=== PATIENT | female | born 1970 ===

== ENCOUNTER 2017-02-06 08:00 | Day surgery (SDC) | payer OTHER ==
[2017-02-06] MEDS ORDERED: Propofol 10 mg/ml Inj (20 ML) ONE (10:03)
--- NOTE | 2017-02-06 10:03 | CP.SDSHP ---
Same Day Surgery H & P - History Proposed Procedure: COLONSCOPY Pre-Op Diagnosis: SEE NOTES - Previous Medical/Surgical History Cardiac: Hypertension Pulmonary: Asthma Endocrine/Metabolic: Diabetes - Allergies Allergies: Allergies Penicillins Adverse Reaction (Verified 02/06/17 08:44) ANAPHYLAXIS - Physical Exam General Appearance: N Vital Signs: Vital Signs 02/06/17 08:55 Temperature 97 F L Pulse Rate 67 Respiratory 20 Rate Blood Pressure 120/68 O2 Sat by Pulse 97 Oximetry Mental Status: Alert & Oriented x3 Neuro: WNL Heart: Other Lungs: Other GI: WNL - {Optional Preform as Required} Breast: WNL Abdomen: Other Rectal: Other Integument: WNL : WNL Ortho: WNL ENT: WNL - Impression Pt. Evaluated Today:Candidate for Anesthesia & Procedure: Yes - Date & Time Time: 10:03 Short Stay Discharge - Short Stay Discharge Admitting Diagnosis/Reason for Visit: DIARRHEA, UNSPECIFIED Disposition: HOME/ ROUTINE
[2017-02-06 10:34] VITALS: TEMP 97.7
[2017-02-06] MEDS ORDERED: Belladonna-Phenobarbital PO ONE (10:40)
[2017-02-06 10:43] VITALS: O2SAT 100
[2017-02-06] MEDS ORDERED: (Novolin R) Insulin Human Regular 100 units/ml vial IV ONE (11:00)
[2017-02-06] MEDS ORDERED: (Novolin R) Insulin Human Regular 100 units/ml vial IV SCH (11:15)
[2017-02-06 12:10] VITALS: BP 104/62; PULSE 79; RESP 22
== END 2017-02-06 12:05 | disposition home or self-care (01) ==
LOC: C.ENDO 08:00
PROVIDERS: ATTEND Specialist
DX: R19.7 Diarrhea, unspecified (principal); D12.7 Benign neoplasm of rectosigmoid junction; K64.8 Other hemorrhoids; K58.9 Irritable bowel syndrome, unspecified
CPT/HCPCS: 45380; 82948; 88305; 88313; 88342; J2704

== ENCOUNTER 2017-02-08 08:32 | Day surgery (SDC) | payer OTHER ==
[2017-02-08 08:48] VITALS: BMI 31.9
[2017-02-08] MEDS ORDERED: Lactated Ringer's 1,000 ML IV ONE (09:50)
--- NOTE | 2017-02-08 09:52 | CP.SDSHP ---
Same Day Surgery H & P - History Proposed Procedure: EGD Pre-Op Diagnosis: SEE NOTES - Previous Medical/Surgical History Cardiac: Hypertension Pulmonary: Asthma Endocrine/Metabolic: Diabetes Misc: , Other Pain: 4.Moderate Pain - Allergies Allergies: Allergies Penicillins Allergy (Severe, Verified 02/08/17 08:57) ANAPHYLAXIS - Physical Exam General Appearance: N Vital Signs: Vital Signs 02/08/17 08:57 Temperature 97.7 F Pulse Rate 80 Respiratory 20 Rate Blood Pressure 114/72 Mental Status: Alert & Oriented x3 Neuro: WNL Heart: Other Lungs: Other GI: Other - {Optional Preform as Required} Breast: WNL Abdomen: Other Rectal: Other Integument: WNL : WNL Ortho: WNL ENT: WNL - Impression Pt. Evaluated Today:Candidate for Anesthesia & Procedure: Yes - Date & Time Time: 09:51 Short Stay Discharge - Short Stay Discharge Admitting Diagnosis/Reason for Visit: DYSPEPSIA Disposition: HOME/ ROUTINE
[2017-02-08] MEDS ORDERED: Propofol 10 mg/ml Inj (20 ML) ONE (09:54)
[2017-02-08] MEDS ORDERED: Belladonna-Phenobarbital PO STA (10:04)
[2017-02-08 10:19] VITALS: TEMP 98.6; O2SAT 3
[2017-02-08 10:48] VITALS: BP 113/66; PULSE 80; RESP 12
== END 2017-02-08 11:15 | disposition home or self-care (01) ==
LOC: C.ENDO 08:32
PROVIDERS: ATTEND Specialist
DX: K21.0 Gastro-esophageal reflux disease with esophagitis (principal); K44.9 Diaphragmatic hernia without obstruction or gangrene; R10.13 Epigastric pain; Z53.09 Procedure and treatment not carried out because of other contraindication